=== PATIENT | female | born 1975 | race Caucasian/White ===

== ENCOUNTER 2019-12-29 13:06 | Emergency (ER) | payer MEDICAID, OTHER ==
[~2019-12-29] VITALS: Ht 165.1 cm; Wt 63.4 kg
[2019-12-29 14:41] LABS: BASO # 0.1 10^3/uL (0.0-0.2); BASO % 0.7 % (0.0-1.0); EOS # 0.1 10^3/uL (0.0-0.5); EOS % 0.8 % (0.0-3.0); HEMATOCRIT 38.4 % (36.0-47.0); HEMOGLOBIN 12.8 g/dl (12.0-15.5); LYMPH # 2.2 10^3/uL (1.5-5.0); MEAN CORPUSCULAR HGB CONC 33.3 g/dl (32.0-36.5); MEAN CORPUSCULAR VOLUME 90.1 fl (80.0-96.0); MONO # 0.5 10^3/uL (0.0-0.8); NEUTROPHILS % 67.3 % (36.0-66.0); PLATELET COUNT, AUTOMATED 358 10^3/uL (150-450); RED BLOOD COUNT 4.26 10^6/uL (4.00-5.40)
[2019-12-29 15:01] LABS: ERYTHROCYTE SEDIMENTATION RATE 5 mm/hr (0-20)
[2019-12-29 15:02] LABS: ALBUMIN 3.8 GM/DL (3.2-5.2); ALT/SGPT 13 U/L (12-78); BILIRUBIN,DIRECT < 0.1 MG/DL (0.0-0.2); BILIRUBIN,TOTAL 0.3 MG/DL (0.2-1.0); C REACTIVE PROTEIN QUANTITATIV < 0.30 MG/DL (0.00-0.30); TOTAL PROTEIN 7.2 GM/DL (6.4-8.2)
[2019-12-29] MEDS ORDERED: GABA-1171 PO (15:16)
[2019-12-29] MEDS ORDERED: PROHANCE 279.3MG/ML 15ML VIAL As Ordered ONE (16:17)
[2019-12-29] MEDS ORDERED: GABAPENTIN 300 MG CAP PO ONE (18:30)
[2019-12-29 18:49] LABS: INR 0.98; PROTHROMBIN TIME 13.2 SECONDS (12.5-14.3)
[2019-12-29 18:50] LABS: PARTIAL THROMBOPLASTIN TIME 30.6 SECONDS (24.2-38.5)
[2019-12-29] MEDS ORDERED: ASPIRIN 81 MG CHEW TABLET PO ONE (19:30)
[2019-12-29 20:08] LABS: CK-MB VALUE MASS < 1.0 NG/ML (<3.6); CPK CREATINE PHOSPHOKINASE 57 U/L (26-192); MB/CK RELATIVE INDEX 1.75 (< OR =4); TROPONIN I < 0.02 NG/ML (< 0.10)
[2019-12-29] MEDS ORDERED: ASPI81CH33 PO (20:26)
[2019-12-29 20:32] VITALS: BP 154/87
--- NOTE | 2019-12-30 16:06 | ECGEPIP ---
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
--- NOTE | 2020-01-01 08:52 | REP ---
INDICATION: discoloration of toes. COMPARISON: None. TECHNIQUE: Multiple sequences obtained in the axial, coronal and sagittal planes. FINDINGS: The osseous structures of the left foot demonstrate no evidence of marrow edema or occult fracture. Flexor and extensor tendons appear intact. There is no tenosynovitis. There is mild diffuse ill-defined soft tissue edema. No joint effusion or ganglion cyst is seen. Plantar tendon is intact. There is no dislocation. No other soft tissue abnormality is seen. IMPRESSION: No evidence of occult fracture. Mild diffuse soft tissue edema in the mid and forefoot. <Electronically signed by Demetris Craig > 01/01/20 [id number]
== END 2019-12-29 20:54 | disposition home or self-care (01) ==
LOC: M ED 13:06
DX: I75.022 Atheroembolism of left lower extremity (principal); F17.200 Nicotine dependence, unspecified, uncomplicated; Z79.899 Other long term (current) drug therapy
CPT/HCPCS: 36415; 73720; 80047; 80076; 82550; 82553; 83605; 84484; 84702; 85025; 85610; 85652; 85730; 86140; 93005; 99284; A9576

== ENCOUNTER 2020-01-11 10:39 | Emergency (ER) | payer OTHER ==
[~2020-01-11] VITALS: Ht 165.1 cm; Wt 75.3 kg
[~2020-01-11 10:39] MED LIST: ASPI81CH33 PO; GABA-1171 PO
[2020-01-11 10:40] VITALS: BP 141/67
== END 2020-01-11 11:45 | disposition home or self-care (01) ==
LOC: M ED 10:39
DX: I75.022 Atheroembolism of left lower extremity (principal); S90.425A Blister (nonthermal), left lesser toe(s), initial encounter; X58.XXXA Exposure to other specified factors, initial encounter; Y92.9 Unspecified place or not applicable; Y93.9 Activity, unspecified; Y99.9 Unspecified external cause status; F17.200 Nicotine dependence, unspecified, uncomplicated

== ENCOUNTER → 2020-05-13 | Outpatient (CLI) | payer OTHER ==
--- NOTE | 2020-05-13 09:29 | REP ---
INDICATION: UNSP ARTH MAGY ART OF LOWER EXT COMPARISON: None. TECHNIQUE: Real time craig scale and Duplex Doppler evaluation of the bilateral lower extremity arterial vasculature using linear high frequency transducer. FINDINGS: Craig scale and duplex doppler images demonstrate minimal amounts of atheromatous plaquing with areas of minimal narrowing but no focal stenosis identified. Doppler interrogation demonstrates normal arterial wave forms and velocities bilaterally. There are diffuse triphasic waveforms bilaterally. LUCERO bilaterally is 1.1. Peak systolic velocities (cm/sec) Common femoral artery: Right 222; Left 246 Profunda femoris: Right 97; Left 102 SFA (proximal): Right 128; Left 136 SFA (mid): Right 161; Left 137 SFA (distal): Right 113; Left 115 Popliteal artery: Right 81; Left 81 CASA (prox.): Right 76; Left 66 Tibioperoneal trunk: Right 95; Left 87 ELECTRICAL CONTINUITY TESTER (prox.): Right 112; Left 85 ELECTRICAL CONTINUITY TESTER (distal): Right 103; Left 62 CASA (distal): Right 107; Left 70 IMPRESSION: Atheromatous changes with areas of minimal narrowing but no focal occlusion or stenosis. <Electronically signed by Demetris Craig > 05/13/20 0929
== END ==
LOC: M RAD 07:08
PROVIDERS: ATTEND Physician Assistant
DX: I70.203 Unspecified atherosclerosis of native arteries of extremities, bilateral legs (principal)